=== PATIENT | male | born 1970 | race Caucasian/White ===

== ENCOUNTER 2021-01-17 01:28 | Emergency (ER) | payer OTHER ==
[~2021-01-17] VITALS: Ht 193 cm; Wt 96.2 kg
[2021-01-17] MEDS ORDERED: IBERSARTAN 150 MG. (02:00)
[2021-01-17] MEDS ORDERED: KETO10TA2 PO (05:06)
== END 2021-01-17 05:11 | disposition home or self-care (01) ==
LOC: ER 01:28
DX: M75.52 Bursitis of left shoulder (principal); M25.512 Pain in left shoulder

== ENCOUNTER 2021-01-17 16:17 | Emergency (ER) | payer OTHER ==
[~2021-01-17] VITALS: Ht 193 cm; Wt 96.2 kg
[~2021-01-17 16:17] MED LIST: IBERSARTAN 150 MG.; KETO10TA2 PO
== END 2021-01-17 18:37 | disposition home or self-care (01) ==
LOC: ER 16:17
DX: M75.52 Bursitis of left shoulder (principal)